=== PATIENT | male | born 1980 | race Two or more races ===

== ENCOUNTER 2016-11-28 19:33 | Emergency (ER) | payer MEDICAID ==
[~2016-11-28] VITALS: Ht 170.2 cm; Wt 99.8 kg
--- NOTE | 2016-11-28 20:01 | NUR ---
Pt ambulated to room with steady gait. Pt has no physical complaints at this time. Pt is here for medical clearance to start a new job. Pt was told he has high blood pressure and new employer wanted him to get it checked prior to starting. Pt resting in position of comfort for self, awaiting further eval.
--- NOTE | 2016-11-28 20:14 | NUR ---
Pt seen by Dr. Mayer. Pt stable for discharge per MD. Pt given ACI. Pt verbalized understanding of dc instructions. Pt ambulated out of er with steady gait.
[2016-11-28 20:17] VITALS: BP 148/92
== END 2016-11-28 20:18 | disposition home or self-care (01) ==
LOC: ER 19:34
DX: Z00.8 Encounter for other general examination (principal); Z88.6 Allergy status to analgesic agent
CPT/HCPCS: A4663